=== PATIENT | male | born 1970 | race African-American/Black ===

== ENCOUNTER → 2020-09-30 | Outpatient (CLI) | payer OTHER ==
--- NOTE | 2020-09-30 13:22 | KCIC ---
Clinical indications: Screening for metal within the orbits prior to an MRI study. A single Meléndez view of the orbits was performed. Findings: No metallic foreign body is seen within either orbit. The maxillary and ethmoid and frontal sinuses are clear. The orbital floors appear symmetric and are intact. Impression: No metallic foreign body is identified within either orbit. Electronically signed by: Jagdeep Barnes MD (09/30/2020 1:19 PM) [id number]
--- NOTE | 2020-09-30 14:17 | KCIC ---
EXAM: Lumbar spine MRI without contrast. HISTORY: Lower back pain. Right lower extremity radiculopathy. TECHNIQUE: Multiplanar, multisequence magnetic resonance imaging of the lumbar spine was performed wi thout contrast. COMPARISON: None. FINDINGS: There is no listhesis. The vertebral bodies are normal in height. There is degenerative end plate remodeling with disc space narrowing, disc desiccation and Schmorl's node formation at L5-S1. T here is no suspicious osseous lesion. There are a few benign osseous hemangiomas There is no fracture . The conus terminates at L1. At L1-L2, L2-L3, L3-L4 and L4-L5, there is no stenosis. At L5-S1, there is a shallow posterior central to right paracentral disc protrusion superimposed on a disc bulge and endplate remodeling. There is minimal right foraminal stenosis. There is near abutmen t of the traversing right S1 nerve root without significant central canal stenosis. IMPRESSION: 1. 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 2. No acute finding. Electronically signed by: Chante Dudley MD (09/30/2020 2:15 PM) [id number]
== END ==
LOC: KCIC MRI 13:00 → EDBD 13:15
PROVIDERS: ATTEND Family Medicine
DX: M47.27 Other spondylosis with radiculopathy, lumbosacral region (principal); Z87.821 Personal history of retained foreign body fully removed
CPT/HCPCS: 70030; 72148